=== PATIENT | female | born 1970 | race Caucasian/White ===

== ENCOUNTER 2016-04-11 18:57 | Emergency (ER) | payer MEDICARE ==
[~2016-04-11] VITALS: Ht 154.9 cm; Wt 66.9 kg
[2016-04-11 19:05] VITALS: BP 119/81; PULSE 74; RESP 18; TEMP 98.2; O2SAT 98
--- NOTE | 2016-04-11 19:12 | PD ---
HPI . finger laceration earlier today Chief Complaint: finger laceration/avulsion earlier today Time Seen by Provider: 19:12 Travel History International Travel<30 days: No Contact w/Intl Traveler<30days: No Traveled to known affect area: No History of Present Illness HPI 45-year-old female with past medical history of depression and seasonal allergies here with complaints of laceration to her right thumb. This happened just a few moments ago and patient came to the emergency room. She was cutting some sweet potatoes and accidentally cut a portion of her distal fat pad off. It does not affect the bone or any tendons or ligaments. She says she has had many cuts before and just needs something to stop the bleeding. She denies any other symptoms. last tetanus unknown PFSH Past Medical History Depression: Yes Social History Tobacco Use: No Allergies-Medications (Allergen,Severity, Reaction): Coded Allergies: Amoxicillin (Verified Allergy, Unknown, rash, 04/11/16) Bactrim (Verified Allergy, Unknown, rash, 04/11/16) Reported Meds & Prescriptions Reported Meds & Active Scripts Active Reported Bupropion HCl 75 Mg Tab 75 Mg PO BID Loratadine 10 Mg Tab 10 Mg PO DAILY Prozac (Fluoxetine HCl) 10 Mg Cap 10 Mg PO DAILY Review of Systems General / Constitutional: No: Fever Eyes: No: Visual changes HENT: No: Headaches Cardiovascular: No: Chest Pain or Discomfort Respiratory: No: Shortness of Breath Gastrointestinal: No: Abdominal Pain Genitourinary: No: Dysuria Musculoskeletal: No: Pain Skin: Positive Other (small thumb abrasion), No Rash Neurologic: No: Weakness Psychiatric: No: Depression Endocrine: No: Polydipsia Hematologic/Lymphatic: No: Easy Bruising Physical Exam Narrative GENERAL: AAO x 3, no acute distress, Well-nourished, well-developed patient. SKIN: Warm and dry. No visible rashes or bruising. right thumb fat pad with missing area about 0.5 cm circular. Cap refill normal. HEAD: Normocephalic and atraumatic. EYES: No scleral icterus. No injection or drainage. ENT: No nasal drainage noted. Mucous membranes pink. Airway patent. NECK: Supple, trachea midline. No JVD. CARDIOVASCULAR: Regular rate and rhythm without murmurs, gallops, or rubs. RESPIRATORY: Breath sounds equal bilaterally. No accessory muscle use. No rhonchi or rales. GASTROINTESTINAL: Abdomen soft, non-tender, nondistended. EXTREMITIES: No cyanosis or edema. Full ROM of right hand. Thumb moves freely without any limitations. BACK: Nontender without obvious deformity. No CVA tenderness. PSYCH: AAO x 3, normal affect. LACERATION right thumb fat pad avulsion LENGTH: 0.5cm REPAIR: The area of the laceration was prepped with Betadine. Digital block of thumb with bupivacaine 0.5%, 6 cc. No evidence of foreign body, tendon injury or neurovascular injury. The wound was cauterized. Gel foam applied. A sterile dressing was applied. The patient was advised to keep the dressing clean and dry. Patient tolerated the procedure well. Data Data Last Documented VS Vital Signs Date Time Temp Pulse Resp B/P Pulse Ox O2 Delivery O2 Flow Rate FiO2 04/11/16 19:16 04/11/16 19:05 98.2 74 18 98 Orders Tetanus/Diphtheria Tox Adult (Tetanus/Di (04/11/16 19:30) Bupivacaine Pf 0.5% Inj (Marcaine Pf 0.5 (04/11/16 20:00) Gelatin 12 Mm/7 Mm Top (Gelfoam 12 Mm/7 (04/11/16 20:30) MDM Medical Decision Making Medical Screen Exam Complete: Yes Emergency Medical Condition: Yes Medical Record Reviewed: Yes (no records on file) Differential Diagnosis thumb laceration, abrasion, contusion, Narrative Course 45-year-old female with past medical history of depression and seasonal allergies here with complaints of laceration to her right thumb. This happened just a few moments ago and patient came to the emergency room. She was cutting some sweet potatoes and accidentally cut a portion of her distal fat pad off. It does not affect the bone or any tendons or ligaments. She says she has had many cuts before and just needs something to stop the bleeding. She denies any other symptoms. patient seen and examined. no sutures can be placed as skin is missing tetanus given cautery performed after digital block, gel foam applied and clean dressing applied Return to emergency department if symptoms return or worsen. Diagnosis Primary Impression: Finger abrasion Qualified Code: S60.419A - Finger abrasion, initial encounter Patient Instructions: Finger Laceration (ED), Laceration (ED), General Instructions Additional Instructions: You may experience tenderness at injection site of tetanus vaccine. If your symptoms return or worsen, go to nearest emergency depart. [facility] for signs of infection including, warmth, redness, drainage, swelling, and streaking. If any develop, come in immediately. Med/Other Pt SpecificInfo: No Change to Meds Disposition: 01 DISCHARGE HOME Condition: Stable Nahomy Lemus Apr 11, 2016 19:12
[2016-04-11] MEDS ORDERED: FLUO-1 PO (19:16)
[2016-04-11] MEDS ORDERED: LORA10TA PO (19:16)
[2016-04-11] MEDS ORDERED: BUPR75TA PO (19:16)
[2016-04-11] MEDS ORDERED: TETANUS/DIPHTHERIA TOXOID ADULT 0.5 ML VIAL IM ONE (19:30)
[2016-04-11] MEDS ORDERED: BUPIVACAINE HCL PF 0.5% 10 ML VIAL INFIL ONE (20:00)
[2016-04-11] MEDS ORDERED: GELATIN 12 MM/7 MM FOAM TOPICAL ONE (20:30)
[2016-04-11] MEDS ORDERED: GELFOAM SIZE 100 TOPICAL ONE (20:30)
[2016-04-11 21:11] VITALS: BP 112/76
== END 2016-04-11 21:15 | disposition home or self-care (01) ==
LOC: PHEFT 18:57
DX: S61.011A Laceration without foreign body of right thumb without damage to nail, initial encounter (principal); F41.9 Anxiety disorder, unspecified; W26.0XXA Contact with knife, initial encounter; Y93.G9 Activity, other involving cooking and grilling; Y92.000 Kitchen of unspecified non-institutional (private) residence as the place of occurrence of the external cause; Y99.8 Other external cause status
CPT/HCPCS: 12001; 90471; 90714